=== PATIENT | male | born 1980 | race Asian ===

== ENCOUNTER 2024-02-02 11:12 | Emergency (ER) | payer OTHER, SELFPAY ==
[2024-02-02 11:13] VITALS: BP 128/87; PULSE 83; RESP 14; TEMP 37.1; O2SAT 98; BMI 22.3
--- NOTE | 2024-02-02 11:33 | ED.URI ---
HPI - URI/Sore Throat <Mark Bai PA-C - Last Filed: 02/02/24 12:39> General Chief Complaint: Urogenital-Male Stated Complaint: blood in urine, nauseous t-1 Time Seen by Provider: 02/02/24 11:28 History of Present Illness HPI Narrative: This is a 44-year-old male presents emergency department due to hematuria onset last night. He states that his urine became red colored last night and reports urinating te hematuria this morning with bloody clots. States he has a sensation of ?tightness? wrapping around from his back to his abdomen bilaterally. Reports mild nausea. States he does have a history of kidney stones in the past which did not require any kind of intervention. Denies any fevers, nausea, vomiting, penile discharge, dysuria, urinary frequency, or any other concerning signs or symptoms. Related Data Previous Rx's Medication Instructions Recorded nitrofurantoin 100 mg PO Q12H 5 days #10 caps 02/02/24 monohydrate/macrocrystals 100 mg capsule (Macrobid) nitrofurantoin 100 mg PO Q12H 5 days #10 caps 02/02/24 monohydrate/macrocrystals 100 mg capsule (Macrobid) Allergies Allergy/AdvReac Type Severity Reaction Status Date / Time No Known Drug Allergies Allergy Verified 02/02/24 11:52 Review of Systems <Mark Bai PA-C - Last Filed: 02/02/24 12:39> Review of Systems Narrative: GENERAL: Denies chills, fatigue, malaise, fever, sweats. HEENT: Denies sinus pain, ear pain, sore throat, difficulty swallowing, dizziness. RESPIRATORY: Denies dyspnea, cough, wheezing, hemoptysis, sputum. CARDIOVASCULAR: Denies chest pain, palpitations, orthopnea, edema, GASTROINTESTINAL: Denies nausea, vomiting, abdominal pain, diarrhea, constipation, melena. : Repeat hematuria, Denies dysuria, frequency, incontinence, , urinary retention. MUSCULOSKELETAL: denies weakness, joint pain, or bony pain SKIN: Denies rash, skin lesions, or other NEUROLOGIC: Denies weakness, headache, numbness, change in speech, confusion, seizures, incoordination. PSYCHIATRIC: No concerning psychosocial issues. 12 point review of systems is negative except for those stated above Patient History <Mark Bai PA-C - Last Filed: 02/02/24 12:39> Social History Smoking Status: Unknown if ever smoked Exam <Mark Bai PA-C - Last Filed: 02/02/24 12:39> Narrative Exam Narrative: GENERAL: Well-developed patient, in mild distress. HEAD: Atraumatic. Normocephalic. EYES: Pupils equal round and reactive. Extraocular motions intact. No scleral icterus. No injection or drainage. ENT: Nose without bleeding, purulent drainage. Throat without erythema, tonsillar hypertrophy or exudate. Airway patent. NECK: Trachea midline. Non tender EXTREMITIES: No edema or joint tenderness. NEURO: AOx3. SKIN: No rash or erythema of visible areas GASTROINTESTINAL: Abdomen soft, non-tender, nondistended. BACK: Nontender without deformity or crepitance. No flank tenderness. Initial Vital Signs Initial Vital Signs: Vital Signs Temperature 98.7 F 02/02/24 11:13 Pulse Rate 83 02/02/24 11:13 Respiratory Rate 14 02/02/24 11:13 Blood Pressure 128/87 02/02/24 11:13 Pulse Oximetry 98 02/02/24 11:13 Oxygen Delivery Method Room Air 02/02/24 11:13 <Pilar King DO - Last Filed: 02/03/24 10:13> Initial Vital Signs Initial Vital Signs: Vital Signs Temperature 98.7 F 02/02/24 11:13 Pulse Rate 83 02/02/24 11:13 Respiratory Rate 14 02/02/24 11:13 Blood Pressure 128/87 02/02/24 11:13 Pulse Oximetry 98 02/02/24 11:13 Oxygen Delivery Method Room Air 02/02/24 11:13 Course <Mark Bai PA-C - Last Filed: 02/02/24 12:39> Orders Ordered: Discontinued Medications Ondansetron HCl (Ondansetron 4 Mg/2 Ml Inj) 4 mg IV NOW PRN PRN Reason: Nausea And Vomiting Vital Signs Vital signs: Vital Signs - 8 hr 02/02/24 11:13 Temperature 98.7 F Pulse Rate 83 Respiratory Rate 14 Blood Pressure 128/87 Pulse Oximetry 98 Oxygen Delivery Method Room Air <Pilar King DO - Last Filed: 02/03/24 10:13> Orders Ordered: Discontinued Medications Ondansetron HCl (Ondansetron 4 Mg/2 Ml Inj) 4 mg IV NOW PRN PRN Reason: Nausea And Vomiting Vital Signs Vital signs: Vital Signs - 8 hr 02/02/24 11:13 Temperature 98.7 F Pulse Rate 83 Respiratory Rate 14 Blood Pressure 128/87 Pulse Oximetry 98 Oxygen Delivery Method Room Air MDM - URI/Sore Throat <Mark Bai PA-C - Last Filed: 02/02/24 12:39> Lab Data 02/02/24 11:50 02/02/24 11:50 Labs: Lab Results 02/02/24 02/02/24 Range/Units 11:23 11:50 WBC 4.9 (4.5-11.0) X10^3/uL RBC 4.45 L (4.5-5.9) X10^6/uL Hgb 13.9 (13.5-17.5) g/dL Hct 40.9 L (41-53) % MCV 91.9 (80-100) fL MCH 31.3 (26-34) PG MCHC 34.1 (30-36) % RDW 13.4 (11.6-14.8) % Plt Count 208 (150-400) X10^3/uL Neut % (Auto) 44.5 L (50-75) % Lymph % (Auto) 37.3 (25-40) % [place] % (Auto) 8.4 (3-14) % Eos % (Auto) 8.7 H (2-4) % Baso % (Auto) 1.1 (0-2) % Neut # (Auto) 2200 (4018-0207) /uL Lymph # (Auto) 1800 (8443-3079) /uL [place] # (Auto) 400 (0-900) /uL Eos # (Auto) 400 (0-450) /uL Baso # (Auto) 100 (0-100) /uL Sodium 139 (137-145) mmol/L Potassium 4.9 (3.4-5.1) mmol/L Chloride 106 (98-107) mmol/L Carbon Dioxide 30 (22-32) mmol/L BUN 18 (9-20) mg/dL Creatinine 0.98 (0.66-1.25) mg/dL Estimated GFR > 60 (>60) mL/min BUN/Creatinine Ratio 18.4 (6-22) Glucose 69 L (70-100) mg/dL Calcium 8.8 (8.4-10.2) mg/dL Total Bilirubin 0.8 (0.2-1.3) mg/dL AST 28 (17-59) IU/L ALT 16 (<50) IU/L Alkaline Phosphatase 55 (38-126) U/L Total Protein 8.1 (6.3-8.2) g/dL Albumin 4.3 (3.5-5.0) g/dL Globulin 3.8 (1.7-4.1) g/dL Albumin/Globulin Ratio 1.1 (1.0-2.8) Lipase 113 (23-300) U/L Urine Color Red Urine Appearance Turbid Urine pH 6.0 (4.5-8.0) Ur Specific [place] >=1.030 H (1.000-1.035) Urine Protein 2+ H (Negative) Urine Glucose (UA) Negative (Negative) g/dL Urine Ketones Negative (NEGATIVE) Urine Occult Blood 3+ H (Negative) Urine Nitrate Negative (Negative) Urine Bilirubin Negative (NEGATIVE) Urine Urobilinogen 1.0 (0.2) E.U./dL Ur Leukocyte Esterase Trace H (NEGATIVE) Urine RBC >100/hpf H (0-5/HPF) Urine WBC 1-5/hpf (0-5/HPF) Ur Squamous Epith Cells None seen (0-5/HPF) Urine Bacteria Moderate (10-30) H (None) Urine Yeast 0-1/hpf (None) Ur Culture Indicated? Specimen cultured Vol Urine Centrifuged 10ml (spun) Imaging Data CT scan - abdomen/pelvis: Radiologist's Impression: [place] [address] CT Scan Report Signed Patient: Riccardo Smith MR#: [id number] : 1980 Acct:[id number] Age/Sex: 44 / M Date of Service: 02/02/24 Loc: ED Accession Number: [id number] Procedure: CT kidney ureter bladder (KUB) Ordering Provider: Mark Bai P.A-C PROCEDURE: CT KIDNEY URETER BLADDER (KUB) INDICATIONS: Hematuria, r/o kidney stone TECHNIQUE: Axial sections were acquired from the lung bases to the pubic symphysis. Coronal and sagittal reformats were performed. For radiation dose reduction, the following was used: automated exposure control, adjustment of mA and/or kV according to patient size. COMPARISON: None. FINDINGS: Image quality: Diagnostic. Lower Chest: No significant findings. URINARY: Right Kidney: No stones or hydronephrosis. Right Ureter: No hydroureter. Left Kidney: No stones or hydronephrosis. Left Ureter: No hydroureter. Bladder: Normal wall thickness. No stones. ABDOMEN: Liver: No contour-deforming solid mass. Gallbladder: No radiopaque gallstones or wall thickening. Biliary ducts: No biliary dilation. Pancreas: No ductal dilation. Spleen: Size is within normal limits. Adrenal Glands: No adrenal nodules. Stomach and Bowel: Normal colonic caliber, without significant wall thickening. Peritoneum: No abnormal intraperitoneal fluid. No free air. Ventral Wall: No hernia. Abdominal Nodes: No enlarged retroperitoneal or mesenteric lymph nodes. Vessels: Aorta and inferior vena cava are normal in size. PELVIS: Pelvic Organs: Unremarkable. Pelvic Nodes: Unremarkable. Miscellaneous: No inguinal hernias are seen. Bones: Unremarkable. IMPRESSION: 1. No renal stones, ureteral stones, or hydronephrosis. 2. No acute abdominal process noted. Dictated by: Arsenio Garcia M.D. on 02/02/2024 at 12:12 Approved by: Arsenio Garcia M.D. on 02/02/2024 at 12:14 MDM Narrative Medical decision making narrative: ED course: This is a 44-year-old male presents to the emergency department due to 2 days hematuria. History of kidney stones but CT KUB came back unremarkable. Lab work unremarkable than a UA which was positive for leukocyte esterase. We will treat for seemed UTI. Patient is still able to urinate without issue. Recommend he follow up with his primary care provider in a week if symptoms continue for possible Urology referral and cystoscopy. CC: Hematuria Complicating co-morbidities: History of kidney stones Data collected from: Previous notes Medical records reviewed: Patient was not been to this emergency department in the past. Differential considered, but not limited to: UTI, pyelonephritis, nephrolithiasis, urethral injury Exam documented above, pertinent findings include: No significant tenderness to palpation Lab Test results independently reviewed as above. Pertinent findings: CMP unremarkable, UA positive for leuks Imaging studies independently reviewed: CT KUB unremarkable Scores Used: None MIPS Elements: None Consultations: None Treatments: None Re-evaluations: None Discussion: Discussed plan with the patient was comfortable with the plan Diagnosis: UTI Disposition: see below, along with detailed discharge instructions that have been reviewed with patient as well as indications for ED re-evaluation and additional outpatient follow up <Pilar Kristen King, DO - Last Filed: 02/03/24 10:13> Lab Data Labs: Lab Results 02/02/24 02/02/24 Range/Units 11:23 11:50 WBC 4.9 (4.5-11.0) X10^3/uL RBC 4.45 L (4.5-5.9) X10^6/uL Hgb 13.9 (13.5-17.5) g/dL Hct 40.9 L (41-53) % MCV 91.9 (80-100) fL MCH 31.3 (26-34) PG MCHC 34.1 (30-36) % RDW 13.4 (11.6-14.8) % Plt Count 208 (150-400) X10^3/uL Neut % (Auto) 44.5 L (50-75) % Lymph % (Auto) 37.3 (25-40) % [place] % (Auto) 8.4 (3-14) % Eos % (Auto) 8.7 H (2-4) % Baso % (Auto) 1.1 (0-2) % Neut # (Auto) 2200 (6539-4532) /uL Lymph # (Auto) 1800 (6868-2564) /uL [place] # (Auto) 400 (0-900) /uL Eos # (Auto) 400 (0-450) /uL Baso # (Auto) 100 (0-100) /uL Sodium 139 (137-145) mmol/L Potassium 4.9 (3.4-5.1) mmol/L Chloride 106 (98-107) mmol/L Carbon Dioxide 30 (22-32) mmol/L BUN 18 (9-20) mg/dL Creatinine 0.98 (0.66-1.25) mg/dL Estimated GFR > 60 (>60) mL/min BUN/Creatinine Ratio 18.4 (6-22) Glucose 69 L (70-100) mg/dL Calcium 8.8 (8.4-10.2) mg/dL Total Bilirubin 0.8 (0.2-1.3) mg/dL AST 28 (17-59) IU/L ALT 16 (<50) IU/L Alkaline Phosphatase 55 (38-126) U/L Total Protein 8.1 (6.3-8.2) g/dL Albumin 4.3 (3.5-5.0) g/dL Globulin 3.8 (1.7-4.1) g/dL Albumin/Globulin Ratio 1.1 (1.0-2.8) Lipase 113 (23-300) U/L Urine Color Red Urine Appearance Turbid Urine pH 6.0 (4.5-8.0) Ur Specific [place] >=1.030 H (1.000-1.035) Urine Protein 2+ H (Negative) Urine Glucose (UA) Negative (Negative) g/dL Urine Ketones Negative (NEGATIVE) Urine Occult Blood 3+ H (Negative) Urine Nitrate Negative (Negative) Urine Bilirubin Negative (NEGATIVE) Urine Urobilinogen 1.0 (0.2) E.U./dL Ur Leukocyte Esterase Trace H (NEGATIVE) Urine RBC >100/hpf H (0-5/HPF) Urine WBC 1-5/hpf (0-5/HPF) Ur Squamous Epith Cells None seen (0-5/HPF) Urine Bacteria Moderate (10-30) H (None) Urine Yeast 0-1/hpf (None) Ur Culture Indicated? Specimen cultured Vol Urine Centrifuged 10ml (spun) Discharge Plan Departure Patient Disposition: Home Clinical Impression: Urinary tract infection Activity Restrictions/Additional Instructions: Thank you for coming to the [facility] Emergency Department today. As we discussed your CT showed no evidence of kidney stone. Urine did show evidence of a possible infection. Please take the antibiotics as prescribed. If your symptoms continue please follow up with the primary care provider in a week for possible referral to Urology as we discussed. I sent the medication to [email or web address] in [place]. Please return to the emergency department if you develop any inability to urinate, significant new or worsening pain, fevers, or any other concerning signs or symptoms. I hope you feel better soon. Please follow up with your primary care provider within a week if your symptoms continue. If you do not have a primary care provider please contact the [facility] Resource line at [phone]. They will ask some questions about your medical history and help you get set up with a provider in the community. Prescriptions: New nitrofurantoin monohyd/m-cryst [Macrobid] 100 mg capsule 100 mg PO Q12H 5 Days Qty: 10 0RF Rx Instructions: must administer with a meal/food nitrofurantoin monohyd/m-cryst [Macrobid] 100 mg capsule 100 mg PO Q12H 5 Days Qty: 10 0RF Rx Instructions: must administer with a meal/food Stand Alone Forms: Patient Portal/API ED Sign-out <Pilar King, - Last Filed: 02/03/24 10:13> Cosign ED Attending John Attestation: I was immediately available in the department for consultation. Case was discussed reviewed findings plan to treat for UTI. Discussed needs follow-up and repeat urine to make sure hematuria has cleared as well as infection. If hematuria still present but no infection we will need follow up with Urology.
--- NOTE | 2024-02-02 11:39 | DI.CT.S_ITS ---
PROCEDURE: CT KIDNEY URETER BLADDER (KUB) INDICATIONS: Hematuria, r/o kidney stone TECHNIQUE: Axial sections were acquired from the lung bases to the pubic symphysis. Coronal and sagittal reformats were performed. For radiation dose reduction, the following was used: automated exposure control, adjustment of mA and/or kV according to patient size. COMPARISON: None. FINDINGS: Image quality: Diagnostic. Lower Chest: No significant findings. URINARY: Right Kidney: No stones or hydronephrosis. Right Ureter: No hydroureter. Left Kidney: No stones or hydronephrosis. Left Ureter: No hydroureter. Bladder: Normal wall thickness. No stones. ABDOMEN: Liver: No contour-deforming solid mass. Gallbladder: No radiopaque gallstones or wall thickening. Biliary ducts: No biliary dilation. Pancreas: No ductal dilation. Spleen: Size is within normal limits. Adrenal Glands: No adrenal nodules. Stomach and Bowel: Normal colonic caliber, without significant wall thickening. Peritoneum: No abnormal intraperitoneal fluid. No free air. Ventral Wall: No hernia. Abdominal Nodes: No enlarged retroperitoneal or mesenteric lymph nodes. Vessels: Aorta and inferior vena cava are normal in size. PELVIS: Pelvic Organs: Unremarkable. Pelvic Nodes: Unremarkable. Miscellaneous: No inguinal hernias are seen. Bones: Unremarkable. IMPRESSION: 1. No renal stones, ureteral stones, or hydronephrosis. 2. No acute abdominal process noted. Dictated by: Arsenio Garcia M.D. on 02/02/2024 at 12:12 Approved by: Arsenio Garcia M.D. on 02/02/2024 at 12:14
[2024-02-02 11:42] LABS: Appearance Urine UA TURBID; Bilirubin Urine UA NEGATIVE (NEGATIVE); Color Urine UA RED; Glucose Urine UA NEGATIVE (Negative); Ketones Urine UA NEGATIVE (NEGATIVE); Leukocyte Esterase Urine UA TRACE (NEGATIVE); Nitrite Urine UA NEGATIVE (Negative); Occult Blood Urine UA 3+ (Negative); Protein Urine UA 2+ (Negative); Specific Gravity Urine UA >=1.030 (1.000-1.035)
--- NOTE | 2024-02-02 11:43 | PC.NURSE ---
Pt also c/o slight dizziness. Pt states urine has not eased up in color; and has remained dark
[2024-02-02 11:48] LABS: Bacteria Urine Moderate (10-30); RBC Urine >100/HPF (0-5/HPF); Squamous Epithelial Cell Urine None Seen (0-5/HPF); Urine Volume 10mL (spun); WBC Urine 1-5/HPF (0-5/HPF)
[2024-02-02 11:49] LABS: Culture Indicated Urine Specimen Cultured
[2024-02-02 11:56] LABS: Add Manual Diff / Slide Review NO; Basophils Absolute Auto 100 /uL (0-100); Basophils Percent Auto 1.1 % (0-2); Eosinophils Absolute Auto 400 /uL (0-450); Eosinophils Percent Auto 8.7 % (2-4); Hematocrit 40.9 % (41-53); Hemoglobin 13.9 g/dL (13.5-17.5); Lymphocytes Absolute Auto 1800 /uL (1100-4500); Lymphocytes Percent Auto 37.3 % (25-40); Mean Corpuscular HGB Conc 34.1 % (30-36); Mean Corpuscular Hemoglobin 31.3 PG (26-34); Mean Corpuscular Volume 91.9 fL (80-100); Monocytes Absolute Auto 400 /uL (0-900); Monocytes Percent Auto 8.4 % (3-14); Neutrophils Absolute Auto 2200 /uL (1500-7000); Neutrophils Percent Auto 44.5 % (50-75); Platelet Count 208 X10^3/uL (150-400); Red Blood Cell Count 4.45 X10^6/uL (4.5-5.9); Red Cell Distribution Width 13.4 % (11.6-14.8); White Blood Cell Count 4.9 X10^3/uL (4.5-11.0)
[2024-02-02 12:30] LABS: Alanine Aminotransferase 16 IU/L (<50); Albumin 4.3 g/dL (3.5-5.0); Albumin Globulin Ratio 1.1 (1.0-2.8); Alkaline Phosphatase 55 U/L (38-126); Aspartate Aminotransferase 28 IU/L (17-59); BUN Creatinine Ratio 18.4 (6-22); Bilirubin Total 0.8 mg/dL (0.2-1.3); Blood Urea Nitrogen 18 mg/dL (9-20); Calcium 8.8 mg/dL (8.4-10.2); Carbon Dioxide 30 mmol/L (22-32); Chloride 106 mmol/L (98-107); Estimated Glomerular Filt Rate > 60 mL/min (>60); Globulin 3.8 g/dL (1.7-4.1); Glucose 69 mg/dL (70-100); HEMOLYSIS < 15 (0-50); Lipase 113 U/L (23-300); Potassium 4.9 mmol/L (3.4-5.1); Sodium 139 mmol/L (137-145); Total Protein 8.1 g/dL (6.3-8.2)
[2024-02-02 12:41] VITALS: BP 122/81; PULSE 68; O2SAT 97
== END 2024-02-02 12:41 | disposition home or self-care (01) ==
PROVIDERS: Emergency Medicine; Emergency Provider Physician Assistant Medical
DX: N39.0 Urinary tract infection, site not specified (principal)
CPT/HCPCS: 36415; 74176; 80053; 81001; 83690; 85025; 87086; 99281; 99284